=== PATIENT | male | born 1980 | race Caucasian/White ===

== ENCOUNTER 2016-03-16 10:53 | Emergency (ER) | payer OTHER, MEDICAID ==
[~2016-03-16] VITALS: Ht 175.3 cm; Wt 90.7 kg
[~2016-03-16 10:53] MED LIST: ESKALITH300 M3 PO; PRILOSEC40 MG PO; ZOFRAN4 M1 PO
[2016-03-16 11:03] VITALS: BP 150/96
--- NOTE | 2016-03-16 11:09 | NUR ---
PT AMBULATED TO BED 7.
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
--- NOTE | 2016-03-16 12:00 | NUR ---
Patient being evaluated by physician at bedside.
[2016-03-16] MEDS ORDERED: KETOROLAC 60 MG/2 ML VIAL IM ONE (12:05)
[2016-03-16 12:30] VITALS: BP 131/90
== END 2016-03-16 12:30 | disposition home or self-care (01) ==
LOC: MED 10:53
DX: M54.5 Low back pain (principal); R07.81 Pleurodynia; F17.200 Nicotine dependence, unspecified, uncomplicated; Z98.890 Other specified postprocedural states
CPT/HCPCS: 81002; 96372; 99283; J1885

== ENCOUNTER 2018-04-30 16:33 | Emergency (ER) | payer OTHER ==
[~2018-04-30] VITALS: Ht 172.7 cm; Wt 97.5 kg
[2018-04-30 16:36] VITALS: BP 156/110
--- NOTE | 2018-04-30 17:55 | NUR ---
PATIENT LEFT WITHOUT BEING SEEN BY DR. MARIN. NO FURTHER CARE PROVIDED FOR PATIENT.
== END 2018-04-30 18:34 | disposition left against medical advice (07) ==
LOC: MED 16:33
DX: M79.673 Pain in unspecified foot (principal); Z53.21 Procedure and treatment not carried out due to patient leaving prior to being seen by health care provider

== ENCOUNTER 2018-05-01 10:47 | Emergency (ER) | payer OTHER ==
[~2018-05-01] VITALS: Ht 172.7 cm; Wt 97.5 kg
[2018-05-01 10:59] VITALS: BP 124/84
--- NOTE | 2018-05-01 11:15 | NUR ---
PT BIB SELF FOR GOUT FLARE UP X1 WEEK. PT REPORTS 8/10 NON RADIATING BURNING/STIFF PAIN THAT INCREASES WITH MOVEMENT. PT REPORTS ENDOMETHACIN HAS NOT BEEN WORKING FOR PAIN RECENTLY. VSS. ER TO SEE PT. MEDHX:GOUT RX:ENDOMETHACIN
[2018-05-01] MEDS ORDERED: KETOROLAC 60 MG/2 ML VIAL IM ONE (12:20)
[2018-05-01 13:00] VITALS: BP 120/75
--- NOTE | 2018-05-01 13:00 | NUR ---
Patient discharged with v/s stable. Written and verbal after care instructions given and explained. Patient alert, oriented and verbalized understanding of instructions. Ambulatory with steady gait WITH CRUTCHES. All questions addressed prior to discharge. ID band removed. Patient advised to follow up with PMD. Rx of NORCO, COLYCRYS AND INDOMETHACIN given. Patient educated on indication of medication including possible reaction and side effects. Opportunity to ask questions provided and answered.
== END 2018-05-01 13:00 | disposition home or self-care (01) ==
LOC: MED 10:47
DX: M10.072 Idiopathic gout, left ankle and foot (principal); M10.071 Idiopathic gout, right ankle and foot
CPT/HCPCS: 96372; 99283; J1885

== ENCOUNTER 2019-07-11 13:09 | Emergency (ER) | payer SELFPAY ==
[~2019-07-11] VITALS: Ht 172.7 cm; Wt 72.1 kg
[2019-07-11 13:12] VITALS: BP 135/78
--- NOTE | 2019-07-11 14:02 | NUR ---
PT TO BED 2
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
[2019-07-11] MEDS ORDERED: KETOROLAC 30 MG/ML VIAL IM ONE (14:55)
[2019-07-11 15:09] LABS: BASOPHILS # (AUTO) 0.1 K/uL (0.00-0.22); BASOPHILS % (AUTO) 0.7 % (0.0-2.0); EOSINOPHILS # (AUTO) 0.1 K/uL (0-0.4); HEMATOCRIT 41.1 % (36-52); HEMOGLOBIN 13.7 g/dL (12.0-18.0); LYMPHOCYTES # (AUTO) 1.7 K/uL (2.0-11.5); LYMPHOCYTES % (AUTO) 18.2 % (20.5-51.1); MEAN CORPUSCULAR HEMOGLOBIN 31 pg (27-31); MEAN CORPUSCULAR HGB CONC 33 g/dL (33-37); MEAN CORPUSCULAR VOLUME 91.6 fL (80-94); MONOCYTES # (AUTO) 0.4 K/uL (0.8-1.0); MONOCYTES % (AUTO) 4.4 % (1.7-9.3); NEUTROPHILS # (AUTO) 7.3 K/uL (1.8-7.7); NEUTROPHILS % (AUTO) 75.7 % (42.2-75.2); PLATELET COUNT (AUTO) 326 K/uL (140-450); RED BLOOD CELL COUNT(AUTO) 4.49 MIL/uL (4.20-6.10); RED CELL DISTRIBUTION WIDTH 14.7 % (11.6-13.7); WHITE BLOOD COUNT (AUTO) 9.6 K/uL (4.8-10.8)
[2019-07-11 15:15] LABS: APPEARANCE,URINE CLEAR (CLEAR); BILIRUBIN,URINE NEGATIVE (NEGATIVE); BLOOD, URINE NEGATIVE (NEGATIVE); COLOR,URINE YELLOW (YELLOW); LEUKOCYTE ESTERASE ,URINE NEGATIVE (NEGATIVE); NITRITE, URINE NEGATIVE (NEGATIVE); UGLUCOSE NEGATIVE (NEGATIVE)
--- NOTE | 2019-07-11 15:19 | NUR ---
PT SITTING IN BED AT LOWEST POSITION, HOB ELEVATED.
[2019-07-11 15:26] LABS: ALBUMIN 3.5 g/dL (3.4-5.0); ANION GAP 13.9 (8-16); CREATININE 0.8 mg/dL (0.6-1.3); POTASSIUM 3.9 mmol/L (3.5-5.1); TOTAL BILIRUBIN 0.3 mg/dL (0.0-1.0)
[2019-07-11 15:28] LABS: BARBITURATE, URINE NEGATIVE ng/ml (NEG <=200); BENZODIAZEPINE, URINE NEGATIVE ng/mL (NEG <=200); CANNABINOID, URINE POSITIVE ng/mL (NEG <=50); COCAINE, URINE NEGATIVE ng/mL (NEG <=300); OPIATE, URINE NEGATIVE ng/mL (NEG <=2000); PHENCYCLIDINE SCREEN,URINE NEGATIVE ng/mL (NEG <=25)
[2019-07-11 15:47] VITALS: BP 135/78
--- NOTE | 2019-07-11 15:50 | NUR ---
Patient discharged with v/s stable. Written and verbal after care instructions given and explained. Patient alert, oriented and verbalized understanding of instructions. Ambulatory with steady gait. All questions addressed prior to discharge. ID band removed. Patient advised to follow up with PMD. Rx of ibuprofen and flexeril given. Patient educated on indication of medication including possible reaction and side effects. Opportunity to ask questions provided and answered.
== END 2019-07-11 15:50 | disposition home or self-care (01) ==
LOC: MED 13:09
DX: G89.29 Other chronic pain (principal); F10.20 Alcohol dependence, uncomplicated; F12.90 Cannabis use, unspecified, uncomplicated; Z87.39 Personal history of other diseases of the musculoskeletal system and connective tissue; Z02.89 Encounter for other administrative examinations; Z98.890 Other specified postprocedural states
CPT/HCPCS: 36415; 80053; 80305; 81003; 85025; 96372; 99283; G0482; J1885

== ENCOUNTER 2021-07-25 18:14 | Emergency (ER) | payer OTHER ==
[~2021-07-25] VITALS: Ht 175.3 cm; Wt 98.4 kg
[2021-07-25 18:19] VITALS: BP 115/85
--- NOTE | 2021-07-25 18:28 | NUR ---
PT W/C ASSISTED TO BED 8.
--- NOTE | 2021-07-25 18:43 | NUR ---
40 y/o male bib self with c/o bilateral big toe pain with redness and swelling x1 month. Patient also has right ankle redness. Patient has 10/10 pain level. Patient took Ibuprofen to no relief. Medical History: Gout NKDA
[2021-07-25] MEDS ORDERED: KETOROLAC 15 MG/ML VIAL IM ONE (19:00)
--- NOTE | 2021-07-25 19:15 | NUR ---
RADIOLOGY AT BEDSIDE.
--- NOTE | 2021-07-25 19:20 | NUR ---
Pt report given to MAC PARKER. Transfer of care at this time.
--- NOTE | 2021-07-25 19:20 | NUR ---
RAD AT BEDSIDE
[2021-07-25] MEDS ORDERED: INDO-323 PO (20:19)
[2021-07-25] MEDS ORDERED: PRED20TA5 PO (20:19)
[2021-07-25] MEDS ORDERED: COLC-30 PO (20:19)
[2021-07-25] MEDS ORDERED: COLCHICINE 0.6 MG TAB PO ONE (20:20)
--- NOTE | 2021-07-25 20:30 | NUR ---
CATINA STATED THAT PAIN IS 5/10 AT THIS TIME AND TOLERABLE. MD SONG
[2021-07-25 20:51] VITALS: BP 124/73
--- NOTE | 2021-07-25 20:51 | NUR ---
Patient discharged with v/s stable. Written and verbal after care instructions given on Gout attack and explained. Patient alert, oriented and verbalized understanding of instructions. Ambulatory with steady gait. All questions addressed prior to discharge. ID band removed. Patient advised to follow up with PMD. Rx of Colchicine, Indomethacin, and Prednisone given.
--- NOTE | 2021-07-25 20:52 | NUR ---
Chart checked and completed.
== END 2021-07-25 20:51 | disposition home or self-care (01) ==
LOC: MED 18:14
DX: M25.571 Pain in right ankle and joints of right foot (principal); M25.572 Pain in left ankle and joints of left foot; F17.200 Nicotine dependence, unspecified, uncomplicated; Z98.890 Other specified postprocedural states; Z79.899 Other long term (current) drug therapy
CPT/HCPCS: 73610; 96372; 99284; J1885; Q0092; 99283

== ENCOUNTER 2021-11-06 20:04 | Emergency (ER) | payer SELFPAY ==
[~2021-11-06] VITALS: Ht 172.7 cm; Wt 88.9 kg
[~2021-11-06 20:04] MED LIST changes: +COLC-30 PO; -ESKALITH300 M3 PO; +INDO-323 PO; +PRED20TA5 PO; -PRILOSEC40 MG PO; -ZOFRAN4 M1 PO
[2021-11-06 20:12] VITALS: BP 116/78
--- NOTE | 2021-11-06 20:17 | NUR ---
PT TO LOBBY VIA W/C
[2021-11-06] MEDS ORDERED: IBUP-1801 PO (22:31)
--- NOTE | 2021-11-06 22:40 | NUR ---
SHORT LEG POSTERIOR APPLIED TO LOWER LEFT LEG, X CALLIE WRAP 2. + CMS AFTER APPLICATION.
[2021-11-06 22:55] VITALS: BP 116/78
--- NOTE | 2021-11-06 22:55 | NUR ---
Patient discharged with v/s stable. Written and verbal after care instructions given and explained. Patient alert, oriented and verbalized understanding of instructions. Wheel Chair Assisted with to car. All questions addressed prior to discharge. ID band removed. Patient advised to follow up with PMD. Rx of IBUPROFEN given. Patient educated on indication of medication including possible reaction and side effects. Opportunity to ask questions provided and answered.
== END 2021-11-06 22:50 | disposition home or self-care (01) ==
LOC: MED 20:04
DX: S92.902A Unspecified fracture of left foot, initial encounter for closed fracture (principal); W18.30XA Fall on same level, unspecified, initial encounter; Y93.89 Activity, other specified; Y92.89 Other specified places as the place of occurrence of the external cause; Y99.8 Other external cause status
CPT/HCPCS: 29515; 73502; 73562; 73630; 99284

== ENCOUNTER 2021-11-08 15:48 | Emergency (ER) | payer SELFPAY ==
[~2021-11-08] VITALS: Ht 175.3 cm; Wt 88.9 kg
[~2021-11-08 15:48] MED LIST changes: +IBUP-1801 PO
[2021-11-08 16:26] VITALS: BP 131/79
[2021-11-08] MEDS ORDERED: HYDROcodone/APAP 7.5/325 MG 1 TAB PO ONE (17:45)
--- NOTE | 2021-11-08 18:27 | NUR ---
SHORT LEG POSTERIOR TO L FOOT. + CMS
[2021-11-08] MEDS ORDERED: ACET-8386 PO (18:31)
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
[2021-11-08 19:05] VITALS: BP 131/79
--- NOTE | 2021-11-08 19:06 | NUR ---
Patient discharged with v/s stable. Written and verbal after care instructions given and explained. Patient alert, oriented and verbalized understanding of instructions. Ambulatory with crutches. All questions addressed prior to discharge. ID band removed. Patient advised to follow up with PMD. Rx of hydrocodone (sent) given. Patient educated on indication of medication including possible reaction and side effects. Opportunity to ask questions provided and answered.
== END 2021-11-08 19:06 | disposition home or self-care (01) ==
LOC: MED 15:48
DX: S92.355D Nondisplaced fracture of fifth metatarsal bone, left foot, subsequent encounter for fracture with routine healing (principal); Z79.899 Other long term (current) drug therapy; Z79.891 Long term (current) use of opiate analgesic; Z79.1 Long term (current) use of non-steroidal anti-inflammatories (NSAID); V29.9XXD Motorcycle rider (driver) (passenger) injured in unspecified traffic accident, subsequent encounter
CPT/HCPCS: 29515; 99283

== ENCOUNTER 2022-11-29 15:44 | Emergency (ER) | payer MEDICAID ==
[~2022-11-29] VITALS: Ht 172.7 cm; Wt 77.1 kg
[~2022-11-29 15:44] MED LIST changes: +ACET-8905 PO
[2022-11-29 16:07] VITALS: PULSE 107; RESP 18; TEMP 97.9; O2SAT 100
[2022-11-29] MEDS ORDERED: traMADol 50 MG TAB PO ONE (16:55)
[2022-11-29] MEDS ORDERED: KETOROLAC 30 MG/ML VIAL ONE (18:33)
[2022-11-29] MEDS ORDERED: traMADol 50 MG TAB ONE (18:37)
== END 2022-11-29 21:39 | disposition home or self-care (01) ==
LOC: MED 15:44
DX: S42.402A Unspecified fracture of lower end of left humerus, initial encounter for closed fracture (principal); X58.XXXA Exposure to other specified factors, initial encounter; Y93.89 Activity, other specified; Y92.89 Other specified places as the place of occurrence of the external cause; Y99.8 Other external cause status
CPT/HCPCS: 72050; 72110; 73080; 99284; J1885